=== PATIENT | female | born 1960 | race Caucasian/White ===

== ENCOUNTER 2016-06-26 11:06 | Emergency (ER) | payer OTHER ==
--- NOTE | 2016-06-26 12:20 | RAD ---
EXAMINATION:CHEST - 2 VIEWS CLINICAL INDICATION: Cough and fever for 4 days. COMPARISON:none FINDINGS: The heart size is normal. There is very mild aortic ectasia. There is no adenopathy identified. There is no pleural effusion. Linear opacities are noted in the lower lung zones bilaterally. No consolidation is identified. The osseous structures are unremarkable for age. IMPRESSION: Bibasilar atelectasis. Senescent changes of the mediastinum are noted. No consolidation or effusion is identified.
== END 2016-06-26 13:05 | disposition home or self-care (01) ==
LOC: ED 11:06
DX: R05 Cough (principal); I10 Essential (primary) hypertension

== ENCOUNTER 2016-07-24 11:16 | Emergency (ER) | payer OTHER ==
[2016-07-24] MEDS ORDERED: DEXAMETHASONE SOD PHOS 10 MG/1 ML VIAL ONE (12:07)
== END 2016-07-24 12:19 | disposition home or self-care (01) ==
LOC: ED 11:16
DX: J02.9 Acute pharyngitis, unspecified (principal); I10 Essential (primary) hypertension
CPT/HCPCS: 87880; 99283 ×2; J1100